=== PATIENT | female | born 1950 | race Caucasian/White ===

== ENCOUNTER 2023-08-08 14:50 | Outpatient (RCR) | payer MEDICARE, SELFPAY ==
--- NOTE | 2023-08-08 17:02 | HP.PTEVAL ---
Patient's Visit Information Visit Information Visit Information: SHEILA GLASGOW is a 72 year old F referred to Physical Therapy by Dr. Carlitos Toledo MD with a diagnosis of RADICULOPATHY ,RADICULOATHY. Date of Evaluation: 08/08/23 Physical Therapist: hTomas Dodd, PT, Cert MDT, OCS Visit Plan Frequency: 2x /Week Duration: 4 Weeks Plan: PT INTERVETIONS DLS ,POSTURAL EX' ,MODALTIES FOR PAIN ,ACTIVITY MODIFICATION AND POSTURE/BODY MECHANICS Subjective Subjective: This 72 y/o female presents to physical therapy with lumbar pain. Patient has had pain right leg pain ~ 5weeks . Patient developed left leg pain with mechanism of pain. Patient went to [facility] had [facility]SCAN and pain medication . Medication tramadol and gabapentin and meloxicam. Seen chiropractor did not help. Patient seen pain management recommended PT. Tried injection last Tuesday. Patient pain located lumbar buttock to thigh to foot . Aggravating walking ,standing ,lifting and sitting. Alleviating factors sitting. Coughing/sneezing -. Bowel/bladder -. Pain affects QOL and function . Patient pain affects sleeping. Patients goals to decrease pain. Patient MRI right HNP with severe narrowing foraminal 2 levels. H/O BILATERAL TKA SOCAIL: VOCATION: retired Pain Right Back: Pain Intensity (Out of 10): 6 Pain Intensity Range: 10 Right Lower Extremity: Pain Intensity (Out of 10): 6 Pain Intensity Range: 10 Objective Objective: POSTURE: mild forward posture NEURO: denies paresthesia/tingling ,right leg ,reflexes L3-,L4-L5 ,L5-S1 1/3 SYMMTRICAL: align GAIT: reciprocal pattern antalgic gait right leg slow cinthia MMT: quads/hams/ankle 4-/5 ,( peak force ) hip flexion/hip abd 0 LUMBAR ROM: flexion min loss ,extension mod loss pain ,side glides min loss FLEXABLITY: min hamstrings tight Special Tests L/S Slump test left side: Negative L/S Slump test right side: Negative L/S Left Straight Leg Raise: Negative L/S Right Straight Leg Raise: Positive Lumbar Standing: Flexion - Mechanical Response: No effect Lumbar Standing: Flexion - Symptoms During Testing: No effect Lumbar Standing: Flexion - Symptoms After Testing: No effect Lumbar Standing: Extension - Mechanical Response: No effect Lumbar Standing: Extension - Symptoms During Testing: Increases Lumbar Standing: Extension - Symptoms After Testing: Worse Lumbar Standing: Right Side Glides - Mechanical Response: No effect Lumbar Standing: Right Side [place] - Symptoms During Testing: No effect Lumbar Standing: Right Side [place] - Symptoms After Testing: No effect Lumbar Standing: Left Side [place] - Mechanical Response: No effect Lumbar Standing: Left Side [place] - Symptoms During Testing: No effect Lumbar Standing: Left Side [place] - Symptoms After Testing: No effect Lumbar Lying: Flexion - Mechanical Response: No effect Lumbar Lying: Flexion - Symptoms During Testing: Increases Lumbar Lying: Flexion - Symptoms After Testing: Worse Lumbar Lying: Extension - Mechanical Response: No effect Lumbar Lying: Extension - Symptoms During Testing: Increases Lumbar Lying: Extension - Symptoms After Testing: Worse Balance/Special Test Scores Oswestry Low Back Score: 35 Goals Goal 1:: Patient to be I with HEP for lumbar Goal Time Frame: 4-6 Weeks Goal 2:: Patient to improve posture/body mechanics for ADLS 80% of the time Goal Time Frame: 4-6 Weeks Goal 3:: Patient to improve lumbar ROM for function of recovery to put on shoes Goal Time Frame: 4-6 Weeks Goal 4:: Patient to improve back oswestry score by 5 points to improve function Goal Time Frame: 4-6 Weeks Goal 5:: Patient prince improve peak force of hip abduction and hip flexion by 5-10 # strength to improve gait Goal Time Frame: 4-6 Weeks Rehabilitation Potential Physical Therapy Diagnosis: This patient has HNP lumbar spine with foraminal stenosis with pain with positioning ,motion testing worse with walking and standing with pain increases with extension thus benefit rom skilled PT Rehabilitation Potential: Good Anticipated Interventions Patient/Client Instruction: Educate patient on: Condition and Plan of Care For the Purpose of:: To decrease pain, To increase ROM, To improve muscle performance and motor function, To improve ability of physical actions for home/community/work/leisure, To improve health of tissue, To decrease soft tissue restriction and To increase flexibility/ROM Therapeutic Exercise to Include: Strength training, Body mechanics, Postural training, Flexibilty training and Dynamic Lumbar Stabilization For the Purpose of:: To decrease pain, To increase ROM, To improve muscle performance and motor function, To increase tolerance to activity/condition/position, To improve ability of physical actions for home/community/work/leisure, To improve health of tissue, To decrease soft tissue restriction, To increase flexibility/ROM, To reduce risk of recurrence and To improve tolerance to ADL's TENS: Yes IF ES: Yes Cryotherapy (ice pack, ice massage): Yes Thermo therapy (hot pack): Yes Ultrasound (thermal/non thermal): Yes For the Purpose of:: To decrease pain, To improve nutrient delivery to tissue, To increase oxygenation perfusion, To improve health of tissue and To decrease soft tissue restriction Text: Thank you for the opportunity to evaluate your patient. For Medicare and Medicare HMO plans, please review the plan of care and approve it. It will need to be FAXED BACK to us at [phone] for Medicare purposes. For Medicare only, by signing this I certify the plan of care. Please let me know if there are questions or concerns regarding this plan of care. Physician Signature: Date:
== END 2023-08-08 19:00 | disposition home or self-care (01) ==
LOC: PT 14:50
PROVIDERS: Referring Provider Anesthesiology; Visit Provider Anesthesiology
DX: M54.17 Radiculopathy, lumbosacral region (principal)
CPT/HCPCS: 97162

== ENCOUNTER → 2023-08-25 | Outpatient (CLI) | payer MEDICARE, SELFPAY ==
--- NOTE | 2023-08-25 15:25 | MRI_ITS ---
STUDY: MRI LUMBAR SPINE WITHOUT CONTRAST REASON FOR EXAM: Female, 73 years old. RADICULOPATHY, rt leg x 6wks TECHNIQUE: Standardized fat and water weighted pulse sequences were obtained in the sagittal and axial planes. COMPARISON: None FINDINGS: Small hemangioma within the L4 vertebral body.. No evidence for acute fracture or other significant bony pathology. T12-L1: Normal endplates. Normal disc height, hydration and morphology. Normal bilateral facet joints. Normal central canal and bilateral lateral recesses. Normal bilateral intervertebral neural foramina. Normal lumbar lordosis. There is no substantial scoliosis. Normal conus medullaris that terminates at T12-L1 L1-2: Normal endplates. Normal disc height, hydration and morphology. Normal bilateral facet joints. Normal central canal and bilateral lateral recesses. Normal bilateral intervertebral neural foramina. L2-3: Mildly narrowed disc space with desiccation of the disc and minor bulging of the annulus.. Bilateral facet arthropathy.. Normal central canal and bilateral lateral recesses. Mild to moderate bilateral neural foraminal encroachment L3-4: Mildly narrowed disc space with desiccation of the disc and mild annular bulge with small right paracentral/posterolateral disc protrusion. Facet arthropathy and mild thickening of ligamenta flava. Moderate narrowing of the central canal exaggerated by posterior epidural fat. Moderate right lateral recess stenosis and mild narrowing of the left. Moderate bilateral neural foraminal stenosis L4-5: Mildly narrowed disc space with desiccation of disc and minor annular bulge with right foraminal disc extrusion with superior migration of disc fragment. Facet arthropathy and thickening of ligamenta flava moderate narrowing of the central canal and bilateral lateral recesses. Severe right neural foraminal stenosis and moderate narrowing on the left L5-S1: Normal endplates. Normal disc height, hydration and minimal annular bulge with tiny right foraminal disc protrusion. Mild facet arthropathy Normal central canal and bilateral lateral recesses. Minor left neural foraminal encroachment and moderate right neural foraminal stenosis Normal visualized sacral ala. Normal visualized paraspinous soft tissue structures. Bilateral renal nodules most likely cysts. This may be further assessed with CT if clinically warranted MRI/Spine Lumbar (Routine) IMPRESSION: No evidence for acute fracture or other significant bony pathology. 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 Findings as above Electronically Signed: Luis Koo MD at 20:57 EST ,
== END | disposition home or self-care (01) ==
LOC: MRI 15:09
PROVIDERS: Referring Provider Anesthesiology; Visit Provider Anesthesiology
DX: M54.17 Radiculopathy, lumbosacral region (principal); M48.061 Spinal stenosis, lumbar region without neurogenic claudication
CPT/HCPCS: 72148

== ENCOUNTER → 2024-07-27 | Outpatient (CLI) | payer MEDICARE, SELFPAY ==
--- NOTE | 2024-07-27 10:50 | RAD_ITS ---
EXAM: XR LEFT HIP WITH PELVIS WHEN PERFORMED, 2 OR 3 VIEWS CLINICAL INDICATION: HIP PAIN TECHNIQUE: Two or three views of the left hip with pelvis when performed. COMPARISON: No relevant prior studies available. FINDINGS: BONES/JOINTS: Degenerative changes in the spine, bilateral SI joints, and bilateral hips. Trochanteric and iliac enthesophytes. Acetabular hypertrophy and sclerosis bilaterally. No displaced fracture. No widening of the pubic symphysis. SOFT TISSUES: Surgical clips in the pelvis. No soft tissue swelling or gas. RAD/HIP, UNI W/ Pelvis 2-3 Views IMPRESSION: Degenerative changes. No acute findings. Electronically Signed: Juice Suárez DO at 21:53 EST ,
== END | disposition home or self-care (01) ==
LOC: RAD 10:39
PROVIDERS: PCP Family Medicine; Referring Provider Anesthesiology; Visit Provider Anesthesiology
DX: M25.552 Pain in left hip (principal)
CPT/HCPCS: 73502